=== PATIENT | female | born 1945 | race Caucasian/White ===

== ENCOUNTER 2025-04-13 11:33 | Inpatient (IN) | payer MEDICARE, MEDICAID ==
[~2025-04-13] VITALS: Ht 149.9 cm; Wt 46.3 kg
[2025-04-13] VITALS (19 sets, daily range): BP systolic 112–160; BP diastolic 66–87; PULSE 97–111; RESP 15–26; TEMP 37.5–37.53; O2SAT 93–99
[~2025-04-13 11:33] MED LIST: FLUT1BLS9 IH; HUM100IN SQ; MAGN400T7 MT; METFORMIN PO; SERT150C; SIMV-43 MT
[2025-04-13] MEDS: SODIUM CHLORIDE 0.9% (SEPSIS BOLUS) IV ONE (12:18)
[2025-04-13] MEDS: CEFTRIAXONE 1GM/50ML 50 ML IV ONE (12:18)
[2025-04-13 12:23] LABS: HEMATOCRIT. 37.0 % (36.0-48.0); HEMOGLOBIN. 11.8 g/dL (12.0-16.0); MEAN PLATELET VOLUME 10.3 fl (7.4-10.4); PLATELET 312 x1000/uL (130-400); RED BLOOD CELL COUNT 4.67 mill/uL (4.2-5.4); RED CELL DISTRIBUTION WIDTH 14.3 % (11.6-14.6)
[2025-04-13 12:33] LABS: INR 1.1
[2025-04-13 12:37] LABS: UREA NITROGEN BLOOD 30 mg/dL (9-23)
[2025-04-13 12:38] LABS: ASPARTATE AMINOTRANSFERASE 25 IU/L (<34)
[2025-04-13 12:39] LABS: BILIRUBIN DIRECT 0.1 mg/dL (<=3.0); BILIRUBIN TOTAL 0.4 mg/dL (0.1-1.0); PROTEIN TOTAL 8.2 g/dL (6.0-8.3)
[2025-04-13 12:52] LABS: CREATININE 1.5 mg/dL (0.6-1.0)
[2025-04-13 13:14] LABS: BAND% 5.0 % (1.0-6.0); LYMPHOCYTES % MANUAL 7.0 % (20.0-60.0); MONOCYTES % MANUAL 5.0 % (2.0-8.0); NEUTROPHILS % MANUAL 83.0 % (45.0-75.0); PLATELET ESTIMATE NORMAL
[2025-04-13 14:39] LABS: BG DEOXYHEMOGLOBIN 62.4 % (0.0-5.0)
[2025-04-13 14:58] LABS: CLARITY URINE TURBID (CLEAR); COLOR URINE DARK YELLOW (YELLOW); PH URINE 5.5 (4.5-8.0); SPECIFIC GRAVITY URINE 1.019 (1.005-1.030)
[2025-04-13 14:59] LABS: GLUCOSE URINE 1+ (NEGATIVE); KETONES URINE 1+ (NEGATIVE); LEUKOCYTE ESTERASE URINE 3+ (NEGATIVE); NITRITE URINE NEGATIVE (NEGATIVE); OCCULT BLOOD URINE 1+ (NEGATIVE); PROTEIN URINE 3+ (NEGATIVE); UROBILINOGEN URINE 0.2 E.U./dL (0.2-1.0)
[2025-04-13 15:05] LABS: SQUAMOUS EPITHELIAL CELL URINE NONE SEEN /lpf (RARE/1+); WBC URINE TNTC /hpf (0-2)
[2025-04-13 15:06] LABS: BACTERIA URINE 4+
[2025-04-13] MEDS ORDERED: KCL 20MEQ/100ML PREMIX 100 ML IV PRN (16:15)
[2025-04-13] MEDS ORDERED: BLOOD SUGAR DIAGNOSTIC STRIP TEST PRN ×2 (16:15→20:45)
[2025-04-13] MEDS ORDERED: SODIUM PHOSPHATE 15 MMOL in SODIUM CHLORIDE 0.9% 245 ML IV PRN (16:15)
[2025-04-13] MEDS ORDERED: DEXTROSE 50% WATER 50ML SYRINGE IV PRN ×2 (16:15→20:45)
[2025-04-13] MEDS ORDERED: MAGNESIUM 2 G PREMIX 50 ML IV PRN (16:15)
[2025-04-13] MEDS: DEXT 5%/0.9% NACL 1,000 ML IV SCH ×2 (16:15→22:22)
[2025-04-13] MEDS ORDERED: POTASSIUM CHLORIDE 40 MEQ in SODIUM CHLORIDE 0.9% 230 ML IV PRN (16:15)
[2025-04-13] MEDS ORDERED: INSULIN REGULAR (DRIP) 100 UNITS in SODIUM CHLORIDE 0.9% 99 ML IV SCH ×2 (16:15→20:45)
[2025-04-13] MEDS: BLOOD SUGAR DIAGNOSTIC STRIP TEST SCH ×2 (17:16→20:45)
[2025-04-13] MEDS: INSULIN REGULAR 100U/100ML PMX 100 ML IV SCH (18:57)
[2025-04-13] MEDS: SODIUM CHLORIDE 0.9% 1,000 ML IV SCH ×2 (19:10→20:45)
[2025-04-13 19:12] LABS: CREATININE 1.2 mg/dL (0.6-1.0)
[2025-04-13 19:13] LABS: UREA NITROGEN BLOOD 26 mg/dL (9-23)
[2025-04-13 19:15] LABS: PHOSPHORUS 2.4 mg/dL (2.5-4.9)
[2025-04-13] MEDS: MAGNESIUM 4 G PREMIX 100 ML IV NR (23:09)
[2025-04-14] VITALS (85 sets, daily range): BP systolic 116–202; BP diastolic 54–179; PULSE 85–110; RESP 13–29; TEMP 37–37.8; O2SAT 90–100
[2025-04-14 01:41] LABS: BASOPHILS % 0.1 % (0.0-2.0); EOSINOPHILS % 0.0 % (0.0-5.0); HEMATOCRIT. 34.4 % (36.0-48.0); HEMOGLOBIN. 10.9 g/dL (12.0-16.0); LYMPHOCYTES % 7.6 % (20.0-50.0); MEAN PLATELET VOLUME 9.5 fl (7.4-10.4); MONOCYTES % 7.2 % (2.0-8.0); NEUTROPHILS % 85.1 % (40.0-76.0); PLATELET 258 x1000/uL (130-400); RED BLOOD CELL COUNT 4.31 mill/uL (4.2-5.4); RED CELL DISTRIBUTION WIDTH 14.1 % (11.6-14.6)
[2025-04-14 02:06] LABS: CREATININE 0.9 mg/dL (0.6-1.0); UREA NITROGEN BLOOD 19 mg/dL (9-23)
[2025-04-14 02:08] LABS: ASPARTATE AMINOTRANSFERASE 16 IU/L (<34)
[2025-04-14 02:09] LABS: BILIRUBIN TOTAL 0.2 mg/dL (0.1-1.0); PHOSPHORUS 1.4 mg/dL (2.5-4.9); PROTEIN TOTAL 6.9 g/dL (6.0-8.3)
[2025-04-14] MEDS: KCL 20MEQ/100ML PREMIX 100 ML IV PRN (02:53)
[2025-04-14] MEDS ORDERED: CLONIDINE 0.1MG TABLET PO PRN (03:00)
[2025-04-14] MEDS: SODIUM PHOSPHATE 15 MMOL in SODIUM CHLORIDE 0.9% 245 ML IV PRN (03:05)
[2025-04-14] MEDS: MAGNESIUM 2 G PREMIX 50 ML IV PRN (03:12)
[2025-04-14 07:32] LABS: HEMATOCRIT. 30.8 % (36.0-48.0); HEMOGLOBIN. 9.9 g/dL (12.0-16.0); MEAN PLATELET VOLUME 10.5 fl (7.4-10.4); PLATELET 210 x1000/uL (130-400); RED BLOOD CELL COUNT 3.83 mill/uL (4.2-5.4); RED CELL DISTRIBUTION WIDTH 14.2 % (11.6-14.6)
[2025-04-14 07:46] LABS: CREATININE 0.8 mg/dL (0.6-1.0); UREA NITROGEN BLOOD 12 mg/dL (9-23)
[2025-04-14 07:48] LABS: ASPARTATE AMINOTRANSFERASE 14 IU/L (<34); PHOSPHORUS 2.4 mg/dL (2.5-4.9)
[2025-04-14 07:49] LABS: BILIRUBIN TOTAL 0.2 mg/dL (0.1-1.0); PROTEIN TOTAL 5.9 g/dL (6.0-8.3)
[2025-04-14] MEDS: ENOXAPARIN 30MG/0.3ML SYR SUBCUT SCH (08:38)
[2025-04-14] MEDS: SERTRALINE HCL 50MG TABLET PO SCH (08:38)
[2025-04-14] MEDS: INSULIN REGULAR 100U/100ML PMX 100 ML IV SCH (08:38)
[2025-04-14] MEDS ORDERED: ONDANSETRON HCL 4MG/2ML INJ IV PRN (09:15)
[2025-04-14] MEDS ORDERED: ACETAMINOPHEN 325MG TABLET PO PRN (09:15)
[2025-04-14] MEDS: VANCOMYCIN 1.25GM/250ML IV NR (09:45)
[2025-04-14] MEDS: POTASSIUM CHLORIDE 20MEQ TABLET SR PO SCH (09:46)
[2025-04-14] MEDS: SODIUM PHOSPHATE 10 MMOL in DEXT 5% WATER 246.6667 ML IV ONE (11:10)
[2025-04-14] MEDS: CEFTRIAXONE 1GM/50ML 50 ML IV SCH (12:43)
[2025-04-14 16:48] LABS: CREATININE 0.7 mg/dL (0.6-1.0)
[2025-04-14 16:49] LABS: UREA NITROGEN BLOOD 12 mg/dL (9-23)
[2025-04-14 16:51] LABS: PHOSPHORUS 1.9 mg/dL (2.5-4.9)
[2025-04-14 17:58] LABS: BAND% 2.0 % (1.0-6.0); LYMPHOCYTES % MANUAL 11.0 % (20.0-60.0); MONOCYTES % MANUAL 4.0 % (2.0-8.0); NEUTROPHILS % MANUAL 83.0 % (45.0-75.0); PLATELET ESTIMATE NORMAL
[2025-04-14] MEDS: POTASSIUM CHLORIDE 20MEQ/PACKET PO SCH (17:59)
[2025-04-14 23:45] LABS: CREATININE 0.7 mg/dL (0.6-1.0); UREA NITROGEN BLOOD 8 mg/dL (9-23)
[2025-04-14 23:47] LABS: PHOSPHORUS 1.2 mg/dL (2.5-4.9)
[2025-04-15] VITALS (80 sets, daily range): BP systolic 97–165; BP diastolic 53–129; PULSE 86–112; RESP 11–36; TEMP 36.5–37.3; O2SAT 74–100
[2025-04-15] MEDS: POTASSIUM CHLORIDE 40 MEQ in SODIUM CHLORIDE 0.9% 230 ML IV PRN (02:38)
[2025-04-15] MEDS ORDERED: MORPHINE SULFATE 4 MG/ML INJ (FOR IV/IM USE) IV PRN (04:00)
[2025-04-15 05:36] LABS: BASOPHILS % 0.2 % (0.0-2.0); EOSINOPHILS % 0.3 % (0.0-5.0); HEMATOCRIT. 30.3 % (36.0-48.0); HEMOGLOBIN. 9.6 g/dL (12.0-16.0); LYMPHOCYTES % 7.9 % (20.0-50.0); MEAN PLATELET VOLUME 9.6 fl (7.4-10.4); MONOCYTES % 8.9 % (2.0-8.0); NEUTROPHILS % 82.7 % (40.0-76.0); PLATELET 209 x1000/uL (130-400); RED BLOOD CELL COUNT 3.71 mill/uL (4.2-5.4); RED CELL DISTRIBUTION WIDTH 14.5 % (11.6-14.6)
[2025-04-15 05:56] LABS: CREATININE 0.7 mg/dL (0.6-1.0); UREA NITROGEN BLOOD 7 mg/dL (9-23)
[2025-04-15 05:59] LABS: PHOSPHORUS 2.3 mg/dL (2.5-4.9)
[2025-04-15] MEDS: MAGNESIUM 2 G PREMIX 50 ML IV NR (06:37)
[2025-04-15] MEDS ORDERED: VANCOMYCIN 750MG/150ML (BAXTER) IV SCH (09:00)
[2025-04-15] MEDS: PANTOPRAZOLE SODIUM 40 MG/VIAL IV SCH (09:06)
[2025-04-15] MEDS: HYDROCODONE/ACETAMINOPHEN 5/325MG TABLET PO PRN (09:07)
[2025-04-15] MEDS ORDERED: DEXTROSE 50% WATER 50ML SYRINGE IV PRN (09:45)
[2025-04-15] MEDS ORDERED: CEFEPIME 1GM IN DEXT 5% 50ML IV SCH (10:00)
[2025-04-15] MEDS: SODIUM CHLORIDE 0.9% 1,000 ML IV SCH (10:28)
[2025-04-15] MEDS: MAGNESIUM 1 G PREMIX 100 ML IV NR (10:28)
[2025-04-15] MEDS: INSULIN GLARGINE 100 UNITS/ML SUBCUT SCH (10:30)
[2025-04-15] MEDS: BLOOD SUGAR DIAGNOSTIC STRIP TEST SCH ×2 (10:34→16:59)
[2025-04-15] MEDS: INSULIN LISPRO 100 UNITS/ML SUBCUT SCH ×3 (10:38→17:24)
[2025-04-15 11:12] LABS: BG BASE EXCESS -10.6 mmol/L (-2.0-3.0); BG CARBOXYHEMOGLOBIN 0.3 % (0.5-1.5); BG DEOXYHEMOGLOBIN 3.9 % (0.0-5.0); BG FRACTION INSPIRED OXYGEN 21; BG HCO3 ACT 14.2 mmol/L (21.0-28.0); BG METHEMOGLOBIN 0.3 % (0.5-1.5); BG OXYGEN SATURATION 96.1 % (94.0-98.0); BG OXYHEMOGLOBIN 95.5 % (94.0-98.0); BG PCO2 28.1 mmHg (32.0-45.0); BG PH 7.321 (7.350-7.450); BG PO2 83.9 mmHg (83.0-108.0); BG SAMPLE SITE RIGHT RADIAL; BG TOTAL HEMOGLOBIN 9.8 g/dL (12.0-16.0); BG VENT MODE ROOM AIR
[2025-04-15] MEDS: BUDESONIDE 0.5MG/2ML NEB HHN SCH (13:11)
[2025-04-15] MEDS: IPRATROPIUM/ALBUTEROL 0.5-3(2.5)MG/3ML NEB HHN SCH (13:14)
[2025-04-15 13:52] LABS: CREATININE 0.6 mg/dL (0.6-1.0)
[2025-04-15 13:53] LABS: UREA NITROGEN BLOOD 7 mg/dL (9-23)
[2025-04-15 13:55] LABS: PHOSPHORUS 1.4 mg/dL (2.5-4.9)
[2025-04-15] MEDS: METHYLPREDNISOLONE SOD SUCC 125MG/2ML (ACT-O-VIAL) IV SCH (13:55)
[2025-04-15] MEDS ORDERED: FUROSEMIDE 40MG/4ML VIAL IVP SCH (14:00)
[2025-04-15] MEDS: FUROSEMIDE 40MG/4ML VIAL IVP SCH ×2 (14:44→17:13)
[2025-04-15] MEDS: CEFEPIME 2,000MG in DEXT 5% WATER 100ML IV SCH (14:48)
[2025-04-15] MEDS: SODIUM PHOSPHATE 10 MMOL in DEXT 5% WATER 246.6667 ML IV NR (14:48)
[2025-04-15] MEDS: CEFTRIAXONE 2GM/50ML 50 ML IV SCH (17:14)
[2025-04-15] MEDS ORDERED: HALOPERIDOL LACTATE 5MG/ML VIAL IM PRN (19:00)
[2025-04-15 19:14] LABS: CREATININE 0.7 mg/dL (0.6-1.0); UREA NITROGEN BLOOD 8 mg/dL (9-23)
[2025-04-15 19:16] LABS: PHOSPHORUS 2.0 mg/dL (2.5-4.9)
[2025-04-15] MEDS: POTASSIUM CHLORIDE 20MEQ TABLET SR PO NR (20:46)
[2025-04-16] VITALS (87 sets, daily range): BP systolic 99–167; BP diastolic 53–105; PULSE 88–116; RESP 9–37; TEMP 36.5–37.2; O2SAT 91–100
[2025-04-16 07:19] LABS: BASOPHILS % 0.3 % (0.0-2.0); EOSINOPHILS % 0.6 % (0.0-5.0); HEMATOCRIT. 26.9 % (36.0-48.0); HEMOGLOBIN. 8.7 g/dL (12.0-16.0); LYMPHOCYTES % 8.6 % (20.0-50.0); MEAN PLATELET VOLUME 10.9 fl (7.4-10.4); MONOCYTES % 6.7 % (2.0-8.0); NEUTROPHILS % 83.8 % (40.0-76.0); PLATELET 213 x1000/uL (130-400); RED BLOOD CELL COUNT 3.39 mill/uL (4.2-5.4); RED CELL DISTRIBUTION WIDTH 14.2 % (11.6-14.6)
[2025-04-16 07:27] LABS: CREATININE 0.8 mg/dL (0.6-1.0); UREA NITROGEN BLOOD 10 mg/dL (9-23)
[2025-04-16] MEDS: INSULIN LISPRO 100 UNITS/ML SUBCUT SCH ×2 (08:36→12:21)
[2025-04-16] MEDS ORDERED: INSULIN GLARGINE 100 UNITS/ML SUBCUT SCH (10:00)
[2025-04-16] MEDS: INSULIN GLARGINE 100 UNITS/ML SUBCUT ONE (12:21)
[2025-04-16] MEDS ORDERED: FUROSEMIDE 40MG/4ML VIAL IVP SCH (14:15)
[2025-04-16] MEDS: FUROSEMIDE 100MG/10ML VIAL IVP SCH (17:19)
[2025-04-16] MEDS: INSULIN GLARGINE 100 UNITS/ML SUBCUT SCH (21:17)
[2025-04-16] MEDS: LORAZEPAM 2MG/ML UD SYRINGE IV PRN (22:54)
[2025-04-17] VITALS (98 sets, daily range): BP systolic 103–143; BP diastolic 59–96; PULSE 90–120; RESP 14–36; TEMP 36.6–36.7; O2SAT 90–100
[2025-04-17] MEDS ORDERED: FUROSEMIDE 40MG/4ML VIAL IVP SCH ×2 (02:15→17:15)
[2025-04-17 05:01] LABS: BASOPHILS % 0.2 % (0.0-2.0); EOSINOPHILS % 1.4 % (0.0-5.0); HEMATOCRIT. 27.7 % (36.0-48.0); HEMOGLOBIN. 9.2 g/dL (12.0-16.0); LYMPHOCYTES % 14.4 % (20.0-50.0); MEAN PLATELET VOLUME 10.8 fl (7.4-10.4); MONOCYTES % 8.3 % (2.0-8.0); NEUTROPHILS % 75.7 % (40.0-76.0); PLATELET 199 x1000/uL (130-400); RED BLOOD CELL COUNT 3.52 mill/uL (4.2-5.4); RED CELL DISTRIBUTION WIDTH 14.0 % (11.6-14.6)
[2025-04-17 05:08] LABS: CREATININE 0.7 mg/dL (0.6-1.0)
[2025-04-17 05:09] LABS: UREA NITROGEN BLOOD 10 mg/dL (9-23)
[2025-04-17] MEDS ORDERED: DEXTROSE 50% WATER 50ML SYRINGE IV PRN (06:30)
[2025-04-17] MEDS: POTASSIUM CHLORIDE 20MEQ TABLET SR PO SCH (10:03)
[2025-04-17] MEDS: FUROSEMIDE 100MG/10ML VIAL IVP SCH (11:33)
[2025-04-17] MEDS: INSULIN LISPRO 100 UNITS/ML SUBCUT SCH (12:00)
[2025-04-17 17:09] LABS: BG BASE EXCESS 6.2 mmol/L (-2.0-3.0); BG CARBOXYHEMOGLOBIN 1.6 % (0.5-1.5); BG DEOXYHEMOGLOBIN 4.8 % (0.0-5.0); BG FRACTION INSPIRED OXYGEN 21; BG HCO3 ACT 27.8 mmol/L (21.0-28.0); BG METHEMOGLOBIN 0.3 % (0.5-1.5); BG OXYGEN SATURATION 95.1 % (94.0-98.0); BG OXYHEMOGLOBIN 93.3 % (94.0-98.0); BG PCO2 30.7 mmHg (32.0-45.0); BG PH 7.575 (7.350-7.450); BG PO2 65.7 mmHg (83.0-108.0); BG SAMPLE SITE RIGHT BRACHIAL; BG TOTAL HEMOGLOBIN 13.1 g/dL (12.0-16.0); BG VENT MODE ROOM AIR
[2025-04-17] MEDS ORDERED: FUROSEMIDE 100MG/10ML VIAL IVP SCH (17:15)
[2025-04-17] MEDS: METOPROLOL TARTRATE 5MG/5ML VIAL IV SCH (17:33)
[2025-04-17] MEDS: ACETAZOLAMIDE 250MG TABLET PO SCH (21:09)
[2025-04-18] VITALS (51 sets, daily range): BP systolic 99–135; BP diastolic 53–116; PULSE 89–112; RESP 14–42; TEMP 36.6–37.3; O2SAT 91–100
[2025-04-18 05:48] LABS: BASOPHILS % 0.3 % (0.0-2.0); EOSINOPHILS % 0.9 % (0.0-5.0); HEMATOCRIT. 29.0 % (36.0-48.0); HEMOGLOBIN. 9.3 g/dL (12.0-16.0); LYMPHOCYTES % 14.0 % (20.0-50.0); MEAN PLATELET VOLUME 10.2 fl (7.4-10.4); MONOCYTES % 9.1 % (2.0-8.0); NEUTROPHILS % 75.7 % (40.0-76.0); PLATELET 378 x1000/uL (130-400); RED BLOOD CELL COUNT 3.68 mill/uL (4.2-5.4); RED CELL DISTRIBUTION WIDTH 14.0 % (11.6-14.6)
[2025-04-18 05:54] LABS: CREATININE 0.8 mg/dL (0.6-1.0); UREA NITROGEN BLOOD 14 mg/dL (9-23)
[2025-04-18] MEDS: POTASSIUM CHLORIDE 20MEQ/PACKET PO NR ×2 (06:48→11:26)
[2025-04-19] VITALS (9 sets, daily range): BP systolic 107–162; BP diastolic 58–91; PULSE 74–110; RESP 17–20; TEMP 36.4–36.9; O2SAT 92–99
[2025-04-19] MEDS ORDERED: LIDOCAINE HCL 1% 10 MG/ML 10ML VIAL ONE (12:14)
[2025-04-19] MEDS: NYSTATIN/TRIAMCIN CREAM 15GM TOP SCH (15:25)
[2025-04-20] VITALS (9 sets, daily range): BP systolic 102–139; BP diastolic 58–73; PULSE 84–100; RESP 18–22; TEMP 36.2–36.6; O2SAT 91–98
[2025-04-20] MEDS ORDERED: LIDOCAINE HCL 1% 10 MG/ML 10ML VIAL ONE (07:46)
[2025-04-21] VITALS: BP 143/72; PULSE 95; RESP 18; TEMP 36.4; O2SAT 95
[2025-04-21 04:00] VITALS: BP 116/69; PULSE 91; RESP 18; TEMP 36.4; O2SAT 97
[2025-04-21 08:00] VITALS: BP 130/73; PULSE 97; RESP 18; TEMP 36.6; O2SAT 95
[2025-04-21 12:00] VITALS: BP 114/63; PULSE 87; RESP 18; TEMP 36.3; O2SAT 97
[2025-04-21 16:00] VITALS: BP 110/70; PULSE 91; RESP 18; TEMP 36.1; O2SAT 95
[2025-04-21 20:00] VITALS: BP 108/56; PULSE 84; RESP 18; TEMP 36.1; O2SAT 98
[2025-04-22] VITALS: BP 137/68; PULSE 87; RESP 20; TEMP 36.6; O2SAT 97
[2025-04-22 04:00] VITALS: BP 115/63; PULSE 84; RESP 16; TEMP 36.6; O2SAT 97
[2025-04-22] MEDS: BLOOD SUGAR DIAGNOSTIC STRIP TEST SCH (06:53)
[2025-04-22 08:00] VITALS: BP 100/62; PULSE 70; RESP 18; TEMP 35.9; O2SAT 97
[2025-04-22 12:00] VITALS: BP 102/65; PULSE 70; RESP 18; TEMP 36.1; O2SAT 99
[2025-04-22] MEDS ORDERED: LIDOCAINE HCL 1% 10 MG/ML 10ML VIAL ONE (12:47)
[2025-04-22 16:00] VITALS: BP 104/58; PULSE 68; RESP 18; TEMP 36.7; O2SAT 99
[2025-04-22] MEDS ORDERED: ACET250T29 PO (16:51)
[2025-04-22] MEDS: BISACODYL 10MG SUPP PR NR (17:14)
[2025-04-22] MEDS: MINERAL OIL ENEMA 133ML PR NR (17:27)
[2025-04-22 17:29] VITALS: BP 104/58; PULSE 68; RESP 18; TEMP 98
[2025-04-22] MEDS ORDERED: NYSTATIN 100,000 UNITS/GM CREAM 15GM TOP SCH (21:00)
== END 2025-04-22 19:56 | DRG 871 ==
LOC: ER 11:33 → CVICU 16:09 → EDBEDREQTM 16:20 → EDBEDREQSVC 16:20 → EDBEDREQ 16:21 → 8WST 04-18 10:39
PROVIDERS: ADMIT Internal Medicine; ATTEND Internal Medicine
PROC: 5A09357 Assistance with Respiratory Ventilation, Less than 24 Consecutive Hours, Continuous Positive Airway Pressure (ICD-10-PCS; 2025-04-15)
PROC: 02HV33Z Insertion of Infusion Device into Superior Vena Cava, Percutaneous Approach (ICD-10-PCS; principal; 2025-04-19)
PROC: B548ZZA Ultrasonography of Superior Vena Cava, Guidance (ICD-10-PCS; 2025-04-19)
PROC: B5181ZA Fluoroscopy of Superior Vena Cava using Low Osmolar Contrast, Guidance (ICD-10-PCS; 2025-04-19)
PROC: 02HV33Z Insertion of Infusion Device into Superior Vena Cava, Percutaneous Approach (ICD-10-PCS; 2025-04-22)
PROC: B548ZZA Ultrasonography of Superior Vena Cava, Guidance (ICD-10-PCS; 2025-04-22)
PROC: B5181ZA Fluoroscopy of Superior Vena Cava using Low Osmolar Contrast, Guidance (ICD-10-PCS; 2025-04-22)
DX: A41.51 Sepsis due to Escherichia coli [E. coli] (principal); E11.10 Type 2 diabetes mellitus with ketoacidosis without coma; J96.01 Acute respiratory failure with hypoxia; N39.0 Urinary tract infection, site not specified; N17.9 Acute kidney failure, unspecified; J44.9 Chronic obstructive pulmonary disease, unspecified; F03.90 Unspecified dementia, unspecified severity, without behavioral disturbance, psychotic disturbance, mood disturbance, and anxiety; F32.A Depression, unspecified; D64.9 Anemia, unspecified; Z20.822 Contact with and (suspected) exposure to COVID-19; E83.39 Other disorders of phosphorus metabolism; E87.6 Hypokalemia; E83.42 Hypomagnesemia; L22 Diaper dermatitis; F41.9 Anxiety disorder, unspecified; L90.5 Scar conditions and fibrosis of skin; Z79.4 Long term (current) use of insulin; Z79.899 Other long term (current) drug therapy; Z89.511 Acquired absence of right leg below knee; Z99.3 Dependence on wheelchair
CPT/HCPCS: 36415; 36600; 71045; 77001; 80048; 80051; 80053; 80076; 81003; 82010; 82375; 82803; 82805; 82962; 83036; 83605; 83735; 83930; 84100; 84145; 85025; 87077; 87186; 87426; 93005; 94070; 94640; 94660; 94664; 97162; 97166; 97535; 99291; A4606; A6449; C1725; J0692; J0696; J1650; J1815; J1938; J2003; J2060; J2470; J3373; J3475; J3480; J3490; J7030; J7042; J7050; J7060; J7626